=== PATIENT | female | born 1945 | race Two or more races ===

== ENCOUNTER 2022-04-26 09:20 | Outpatient (CLI) | payer OTHER | END 2022-04-26 09:28 | disposition home or self-care (01) | LOC: RAD 09:20 | PROVIDERS: ATTEND Orthopaedic Surgery | DX: S42.335A Nondisplaced oblique fracture of shaft of humerus, left arm, initial encounter for closed fracture (principal) ==

== ENCOUNTER → 2022-04-30 09:34 | Outpatient (CLI) | payer OTHER | END | disposition home or self-care (01) | LOC: LAB 09:34 | PROVIDERS: ATTEND Orthopaedic Surgery | DX: D64.89 Other specified anemias (principal); E88.89 Other specified metabolic disorders; D68.8 Other specified coagulation defects; N39.0 Urinary tract infection, site not specified; A49.02 Methicillin resistant Staphylococcus aureus infection, unspecified site; E11.9 Type 2 diabetes mellitus without complications; I49.9 Cardiac arrhythmia, unspecified; I10 Essential (primary) hypertension; Z76.89 Persons encountering health services in other specified circumstances ==

== ENCOUNTER 2022-05-08 09:23 | Emergency (ER) | payer OTHER ==
[~2022-05-08] VITALS: Ht 162.6 cm; Wt 65.8 kg
[2022-05-08] MEDS ORDERED: GLUMETZA500 MG PO (09:36)
[2022-05-08] MEDS ORDERED: ATORVASTATIN CA10 MG PO (09:37)
[2022-05-09] MEDS ORDERED: BUSP PO (13:13)
[2022-05-09] MEDS ORDERED: ANASTROZOLE1 MG PO (13:14)
[2022-05-09] MEDS ORDERED: PEPCI PO (13:14)
[2022-05-09] MEDS ORDERED: SERTRALINE HCL100 MG PO (13:15)
[2022-05-09] MEDS ORDERED: COZAAR25 MG PO (13:16)
[2022-05-09] MEDS ORDERED: TOPR PO (13:16)
[2022-05-09] MEDS ORDERED: RAZADYNE ER16 MG PO (13:17)
== END 2022-05-08 15:36 | disposition home or self-care (01) ==
LOC: ER 09:23
DX: T14.8XXA Other injury of unspecified body region, initial encounter (principal); W06.XXXA Fall from bed, initial encounter; Y93.89 Activity, other specified; Y92.013 Bedroom of single-family (private) house as the place of occurrence of the external cause; Y99.9 Unspecified external cause status; E11.9 Type 2 diabetes mellitus without complications; Z79.84 Long term (current) use of oral hypoglycemic drugs; M25.551 Pain in right hip

== ENCOUNTER 2022-05-14 07:19 | Day surgery (SDC) | payer OTHER ==
[~2022-05-14 07:19] MED LIST: ANASTROZOLE1 MG PO; ATORVASTATIN CA10 MG PO; BUSP PO; COZAAR25 MG PO; GLUMETZA500 MG PO; PEPCI PO; RAZADYNE ER16 MG PO; SERTRALINE HCL100 MG PO; TOPR PO
== END 2022-05-14 17:25 | disposition home or self-care (01) ==
LOC: CIR.AMB 07:19
PROVIDERS: ATTEND Orthopaedic Surgery
DX: S42.335A Nondisplaced oblique fracture of shaft of humerus, left arm, initial encounter for closed fracture (principal); M75.122 Complete rotator cuff tear or rupture of left shoulder, not specified as traumatic; Z20.822 Contact with and (suspected) exposure to COVID-19
CPT/HCPCS: 24516; 29827; L8699

== ENCOUNTER 2022-08-01 09:12 | Outpatient (CLI) | payer OTHER | END 2022-08-01 09:18 | disposition home or self-care (01) | LOC: RAD 09:12 | PROVIDERS: ATTEND Orthopaedic Surgery | DX: S42.335 Nondisplaced oblique fracture of shaft of humerus, left arm (principal) ==